=== PATIENT | female | born 1985 | race Caucasian/White ===

== ENCOUNTER 2019-04-04 18:09 | Emergency (ER) | payer SELFPAY ==
[~2019-04-04] VITALS: Ht 165.1 cm; Wt 73.5 kg
--- OUTSIDE RECORDS SUMMARY | 2019-04-04 18:11 | XMS REPORT ---
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 Test Item Value Reference Range Comments SODIUM (test code=NA) 138 mmol/L 136-145 POTASSIUM (test code=K) 3.8 mmol/L 3.5-5.1 CHLORIDE (test code=CL) 103.0 mmol/L 98-107 CARBON DIOXIDE (test code=CO2) 29.0 mmol/L 21-32 ANION GAP (test code=GAP) 9.8 10-20 GLUCOSE (test code=GLU) 95 mg/dL 74-106 BLOOD UREA NITROGEN (test code=BUN) 11 mg/dL 7-18 GLOMERULAR FILTRATION RATE (test code=GFR) > 60 mL/min >=60 Estimated GFR by using Modified MDRD formula.Chronic kidney disease is defined as either kidney damageor GFR <60 mL/min/1.73 m2 for >3 months. CREATININE (test code=CREAT) 0.60 mg/dL 0.55-1.02 Note change in reference range due to change in reagent. BUN/CREATININE RATIO (test code=BUN/CREA) 17.3 10-20 TOTAL PROTEIN (test code=PROT) 7.4 gram/dL 6.4-8.2 ALBUMIN (test code=ALB) 3.5 g/dL 3.4-5.0 GLOBULIN (test code=GLOB) 3.9 gram/dL 2.7-4.2 ALBUMIN/GLOBULIN RATIO (test code=A/G) 0.9 0.75-1.50 CALCIUM (test code=CA) 8.9 mg/dL 8.5-10.1 BILIRUBIN TOTAL (test code=BILT) 0.20 mg/dL 0.0-1.0 SGOT/AST (test code=AST) 10 IUnit/L 15-37 SGPT/ALT (test code=ALT) 18 IUnit/L 12-78 ALKALINE PHOSPHATASE TOTAL (test code=ALKP) 98 IUnit/L 45-117 Note change in reference range due to change in reagent. COMPREHENSIVE METABOLIC [id number] 20:05:00* Test Item Value Reference Range Comments SODIUM (test code=NA) 138 mmol/L 136-145 POTASSIUM (test code=K) 3.8 mmol/L 3.5-5.1 CHLORIDE (test code=CL) 103.0 mmol/L 98-107 CARBON DIOXIDE (test code=CO2) mmol/L 21-32 ANION GAP (test code=GAP) 10-20 GLUCOSE (test code=GLU) mg/dL 74-106 BLOOD UREA NITROGEN (test code=BUN) mg/dL 7-18 GLOMERULAR FILTRATION RATE (test code=GFR) mL/min >=60 CREATININE (test code=CREAT) mg/dL 0.55-1.02 BUN/CREATININE RATIO (test code=BUN/CREA) 10-20 TOTAL PROTEIN (test code=PROT) gram/dL 6.4-8.2 ALBUMIN (test code=ALB) g/dL 3.4-5.0 GLOBULIN (test code=GLOB) gram/dL 2.7-4.2 ALBUMIN/GLOBULIN RATIO (test code=A/G) 0.75-1.50 CALCIUM (test code=CA) mg/dL 8.5-10.1 BILIRUBIN TOTAL (test code=BILT) mg/dL 0.0-1.0 SGOT/AST (test code=AST) IUnit/L 15-37 SGPT/ALT (test code=ALT) IUnit/L 12-78 ALKALINE PHOSPHATASE TOTAL (test code=ALKP) IUnit/L 45-117 CBC W/AUTO [id number] 19:45:00* Test Item Value Reference Range Comments WHITE BLOOD CELL (test code=WBC) 10.3 K/mm3 4.5-12.5 RED BLOOD CELL (test code=RBC) 4.55 mill/mm3 3.7-5.2 HEMOGLOBIN (test code=HGB) 13.2 gram/dL 11.5-15.5 HEMATOCRIT (test code=HCT) 41.4 % 36.0-46.0 MEAN CELL VOLUME (test code=MCV) 91.0 fL 80-98 MEAN CELL HGB (test code=MCH) 29.0 picogram 27.0-33.0 MEAN CELL HGB CONCETRATION (test code=MCHC) 31.9 gram/dL 33.0-36.0 RED CELL DISTRIBUTION WIDTH (test code=RDW) 13.0 % 11.6-16.2 RED CELL DISTRIBUTION WIDTH SD (test code=RDW-SD) 43.1 fL 37.0-51.0 PLATELET COUNT (test code=PLT) 253 K/mm3 150-450 MEAN PLATELET VOLUME (test code=MPV) 10.9 fL 6.7-11.0 NEUTROPHIL % (test code=NT%) 64.3 % 39.0-69.0 IMMATURE GRANULOCYTE % (test code=IG%) 0.5 % 0.0-5.0 LYMPHOCYTE % (test code=LY%) 26.5 % 25.0-55.0 MONOCYTE % (test code=MO%) 7.1 % 0.0-10.0 EOSINOPHIL % (test code=EO%) 1.1 % 0.0-5.0 BASOPHIL % (test code=BA%) 0.5 % 0.0-1.0 NUCLEATED RBC % (test code=NRBC%) 0.0 % 0-0 NEUTROPHIL # (test code=NT#) 6.66 K/mm3 1.8-7.7 IMMATURE GRANULOCYTE # (test code=IG#) 0.05 x10 3/uL 0-0.03 LYMPHOCYTE # (test code=LY#) 2.74 K/mm3 1.0-5.0 MONOCYTE # (test code=MO#) 0.73 K/mm3 0-0.8 EOSINOPHIL # (test code=EO#) 0.11 K/mm3 0.0-0.5 BASOPHIL # (test code=BA#) 0.05 K/mm3 0.0-0.2 NUCLEATED RBC # (test code=NRBC#) 0.00 K/mm3 0.0-0.1 CBC W/AUTO [id number] 19:44:00* Test Item Value Reference Range Comments WHITE BLOOD CELL (test code=WBC) K/mm3 4.5-12.5 RED BLOOD CELL (test code=RBC) mill/mm3 3.7-5.2 HEMOGLOBIN (test code=HGB) 13.2 gram/dL 11.5-15.5 HEMATOCRIT (test code=HCT) 41.4 % 36.0-46.0 MEAN CELL VOLUME (test code=MCV) fL 80-98 MEAN CELL HGB (test code=MCH) picogram 27.0-33.0 MEAN CELL HGB CONCETRATION (test code=MCHC) gram/dL 33.0-36.0 RED CELL DISTRIBUTION WIDTH (test code=RDW) % 11.6-16.2 RED CELL DISTRIBUTION WIDTH SD (test code=RDW-SD) fL 37.0-51.0 PLATELET COUNT (test code=PLT) K/mm3 150-450 MEAN PLATELET VOLUME (test code=MPV) fL 6.7-11.0 NEUTROPHIL % (test code=NT%) % 39.0-69.0 IMMATURE GRANULOCYTE % (test code=IG%) % 0.0-5.0 LYMPHOCYTE % (test code=LY%) % 25.0-55.0 MONOCYTE % (test code=MO%) % 0.0-10.0 EOSINOPHIL % (test code=EO%) % 0.0-5.0 BASOPHIL % (test code=BA%) % 0.0-1.0 NEUTROPHIL # (test code=NT#) K/mm3 1.8-7.7 LYMPHOCYTE # (test code=LY#) K/mm3 1.0-5.0 MONOCYTE # (test code=MO#) K/mm3 0-0.8 EOSINOPHIL # (test code=EO#) K/mm3 0.0-0.5 BASOPHIL # (test code=BA#) K/mm3 0.0-0.2 - MRI LOW EXT W WO CONT [id number] 13:07:00 FAX: Diana Beyer [facility] [phone] [place]: B St: REG Name: ROBERTO STARK [facility] : [birth year] Age[facility]S: 33[facility]F [address] [facility] Unit #: [id number] Loc: [place] [address] Phys: Diana Dominguez DPM Acct: [id number] Dis Date: Status: REG CLI PHONE #: [phone] Exam Date: 04/16/2018950 FAX #: [phone] Reason: S91.302D EXAMS: CPT CODE: [id number] [place] [address] HISTORY: Multiple fractures of the left foot TECHNIQUE: Sagittal T1, sagittal STIR, axial T1, axial T2 fat-sat, coronal T2, and coronal STIR sequences of the left foot were a cquired without contrast. COMPARISON: CT of the left foot [facility]2018 and radiographs of the left foot March 31, 2018 FINDINGS: There is marrow edema at the base of the great toe proximal metatarsal. There is also marrow edema at the head of the metatar coleman. There are patchy areas of marrow edema throughout the third and fourt h metatarsals. There is also edema at the base and in the head of the fifth metatarsal. Multiple hyperintense foci are also seen in the talus, calcaneus, navicular, cuboid, and all 3 cuneiform bones. On postcontrast imaging there is enhancement in the head of the first metata rsal and the base of the great toe proximal phalanx. Foci of enhancement a re seen in the talus, calcaneus, the tibial plafond, the cuboid, and all 3 cuneiform bones. There is also diffuse marrow enhancement of the third, f ourth, and fifth metatarsals. There is diffuse swelling of the sof t tissues around the foot but no discrete fluid collection is seen. IMPRESSION: Findings consistent with osteomyelitis i nvolving metatarsals 3 through 5 as well as head of the first metatarsal and the proximal phalanx of the great toe. There is osteomyelitis throu ghout the tarsal bones and in the tibial plafond as well. The patient's known fractures of the proximal phalanx of the great toe and in the fourth metatarsal neck are not well visualized on this exam. at 1307 Reported and signed by: Mike Moore MD PAGE 1 Signed Report (CONTINUED) FAX: Diana Quezada DPM [phone] [place]: B St: REG Name: ROBERTO AMAYA [facility] : 1985 Age/S: 33/F [address] Unit #: [id number] [facility] [place] [address] Phys: Diana Dominguez DPM Acct: [id number] Dis Date: Status: REG CLI PHONE #: [phone] Exam Date: 04/16/2018 0951 FAX #: [phone] Reason: S91.302D EXAMS: CPT CODE: [id number] [place] [address] <Continued> CC: Diana Dominguez DPM Technologist: Jeanette Palomares)(MR) Trnscrd Date/Time/By: 04/16/2018 (1307) : By: [email or web address] Orig Print D/T: S: 04/16/2018 (3638) PAGE 2 Signed Report - XR FOOT 3 + V [id number] 15:32:00 FAX: Diana Beyer DPM [phone] [place]: O St: REG Name: ROBERTO STARK [facility] : [birth year] Age/S: 32/F [address] Unit #: [id number] Loc: [facility] [place] [address] Phys: Diana Dominguez DPM Acct: [id number] Dis Date: Status: REG RCR PHONE #: [phone] Exam Date: 03/31/2018 1427 FAX #: [phone] Reason: S91.302D EXAMS: CPT CODE: [id number] XR FOOT 3 + [place] [address] REASON FOR EXAM: S91.302D EXAM ORDER DATE: 03/31/2018 1:27 PM Ordering MLinda: Diana Dominguez DPM PROCEDURE: - XR FOOT 3 + V LT FINDINGS: 3 views of the left foot were obtained. Moderate focal s oft tissue swelling in the dorsal aspect of the fourth/fifth MTPs. The osseous structures are mildly osteopenic in this area. There is probable chronic partially nonunion fracture involving the head of the fourth pro ximal phalanx. A probable lytic lesion noted within the fifth DIP suggesti ve of possible osteomyelitis. Recommend further correlation with CT IMPRESSION: Focal soft tissue swelling at the left fourth/fifth MTP. Nonunion chronic fracture of the head of the fourth proximal phalanx. Probable focal destructive/osteolytic lesion versus artifact at the fifth DIP. Recommend further correlation with CT Electronically Sig ene by Crow Metcalf on 03/31/2018 at 1532 Reported and s igned by: Ruben Metcalf M.D. CC: Diana Dominguez DPM Technologist: RT Reuben(Thien) Trnscrd Date/Time/By: 03/31/2018 (0288) : By: GabiL Orig Print D/T: S: 03/31/2018 (6673) PAGE 1 Signed Report COMPREHENSIVE METABOLIC PANEL 2018-03-31 14:32:00* Test Item Value Reference Range Comments SODIUM (test code=NA) 140 mmol/L 136-145 POTASSIUM (test code=K) 4.2 mmol/L 3.5-5.1 CHLORIDE (test code=CL) 104.0 mmol/L 98-107 CARBON DIOXIDE (test code=CO2) 29.0 mmol/L 21-32 ANION GAP (test code=GAP) 11.2 10-20 GLUCOSE (test code=GLU) 86 mg/dL 74-106 BLOOD UREA NITROGEN (test code=BUN) 9 mg/dL 7-18 GLOMERULAR FILTRATION RATE (test code=GFR) > 60 mL/min >=60 Estimated GFR by using Modified MDRD formula.Chronic kidney disease is defined as either kidney damageor GFR <60 mL/min/1.73 m2 for >3 months. CREATININE (test code=CREAT) 0.70 mg/dL 0.55-1.02 Note change in reference range due to change in reagent. BUN/CREATININE RATIO (test code=BUN/CREA) 13.3 10-20 TOTAL PROTEIN (test code=PROT) 6.9 gram/dL 6.4-8.2 ALBUMIN (test code=ALB) 3.8 g/dL 3.4-5.0 GLOBULIN (test code=GLOB) 3.1 gram/dL 2.7-4.2 ALBUMIN/GLOBULIN RATIO (test code=A/G) 1.2 0.75-1.50 CALCIUM (test code=CA) 8.9 mg/dL 8.5-10.1 BILIRUBIN TOTAL (test code=BILT) 0.20 mg/dL 0.0-1.0 SGOT/AST (test code=AST) 15 IUnit/L 15-37 SGPT/ALT (test code=ALT) 21 IUnit/L 12-78 ALKALINE PHOSPHATASE TOTAL (test code=ALKP) 96 IUnit/L 45-117 Note change in reference range due to change in reagent. HCG SERUM [id number] 14:32:00* Test Item Value Reference Range Comments HCG SERUM QUAL (test code=HCGQL) NEGATIVE NEGATIVE This HCGQL test is NOT applicable for MALE patients.Check with nurse about probable order error.If Tumor Marker Test needed, nurse should order test "HCGTU"(Test #550.28513) [id number] 14:23:00* Test Item Value Reference Range Comments GLYCOSYLATED HEMOGLOBIN (HA1C) (test code=GLYHGB) 5.2 % HbA1 4.8-6.0 ESTIMATED AVERAGE GLUCOSE (test code=EAG) 103 MG/DL COMPREHENSIVE METABOLIC [id number] 14:23:00* Test Item Value Reference Range Comments SODIUM (test code=NA) 140 mmol/L 136-145 POTASSIUM (test code=K) 4.2 mmol/L 3.5-5.1 CHLORIDE (test code=CL) 104.0 mmol/L 98-107 CARBON DIOXIDE (test code=CO2) mmol/L 21-32 ANION GAP (test code=GAP) 10-20 GLUCOSE (test code=GLU) mg/dL 74-106 BLOOD UREA NITROGEN (test code=BUN) mg/dL 7-18 GLOMERULAR FILTRATION RATE (test code=GFR) mL/min >=60 CREATININE (test code=CREAT) mg/dL 0.55-1.02 BUN/CREATININE RATIO (test code=BUN/CREA) 10-20 TOTAL PROTEIN (test code=PROT) gram/dL 6.4-8.2 ALBUMIN (test code=ALB) g/dL 3.4-5.0 GLOBULIN (test code=GLOB) gram/dL 2.7-4.2 ALBUMIN/GLOBULIN RATIO (test code=A/G) 0.75-1.50 CALCIUM (test code=CA) mg/dL 8.5-10.1 BILIRUBIN TOTAL (test code=BILT) mg/dL 0.0-1.0 SGOT/AST (test code=AST) IUnit/L 15-37 SGPT/ALT (test code=ALT) IUnit/L 12-78 ALKALINE PHOSPHATASE TOTAL (test code=ALKP) IUnit/L 45-117 HCG SERUM [id number] 14:23:00* Test Item Value Reference Range Comments HCG SERUM QUAL (test code=HCGQL) NEGATIVE NEGATIVE This HCGQL test is NOT applicable for MALE patients.Check with nurse about probable order error.If Tumor Marker Test needed, nurse should order test "HCGTU"(Test #550.02045) CBC W/AUTO [id number] 14:22:00* Test Item Value Reference Range Comments WHITE BLOOD CELL (test code=WBC) 9.2 K/mm3 4.5-12.5 RED BLOOD CELL (test code=RBC) 4.53 mill/mm3 3.7-5.2 HEMOGLOBIN (test code=HGB) 13.0 gram/dL 11.5-15.5 HEMATOCRIT (test code=HCT) 42.2 % 36.0-46.0 MEAN CELL VOLUME (test code=MCV) 93.2 fL 80-98 MEAN CELL HGB (test code=MCH) 28.7 picogram 27.0-33.0 MEAN CELL HGB CONCETRATION (test code=MCHC) 30.8 gram/dL 33.0-36.0 RED CELL DISTRIBUTION WIDTH (test code=RDW) 13.2 % 11.6-16.2 RED CELL DISTRIBUTION WIDTH SD (test code=RDW-SD) 45.1 fL 37.0-51.0 PLATELET COUNT (test code=PLT) 265 K/mm3 150-450 MEAN PLATELET VOLUME (test code=MPV) 11.1 fL 6.7-11.0 NEUTROPHIL % (test code=NT%) 62.9 % 39.0-69.0 IMMATURE GRANULOCYTE % (test code=IG%) 0.5 % 0.0-5.0 LYMPHOCYTE % (test code=LY%) 25.8 % 25.0-55.0 MONOCYTE % (test code=MO%) 8.4 % 0.0-10.0 EOSINOPHIL % (test code=EO%) 1.7 % 0.0-5.0 BASOPHIL % (test code=BA%) 0.7 % 0.0-1.0 NUCLEATED RBC % (test code=NRBC%) 0.0 % 0-0 NEUTROPHIL # (test code=NT#) 5.75 K/mm3 1.8-7.7 IMMATURE GRANULOCYTE # (test code=IG#) 0.05 x10 3/uL 0-0.03 LYMPHOCYTE # (test code=LY#) 2.36 K/mm3 1.0-5.0 MONOCYTE # (test code=MO#) 0.77 K/mm3 0-0.8 EOSINOPHIL # (test code=EO#) 0.16 K/mm3 0.0-0.5 BASOPHIL # (test code=BA#) 0.06 K/mm3 0.0-0.2 NUCLEATED RBC # (test code=NRBC#) 0.00 K/mm3 0.0-0.1 MANUAL DIFF REQUIRED (test code=MDIFF) NO CBC W/AUTO [id number] 14:17:00* Test Item Value Reference Range Comments WHITE BLOOD CELL (test code=WBC) K/mm3 4.5-12.5 RED BLOOD CELL (test code=RBC) mill/mm3 3.7-5.2 HEMOGLOBIN (test code=HGB) 13.0 gram/dL 11.5-15.5 HEMATOCRIT (test code=HCT) 42.2 % 36.0-46.0 MEAN CELL VOLUME (test code=MCV) fL 80-98 MEAN CELL HGB (test code=MCH) picogram 27.0-33.0 MEAN CELL HGB CONCETRATION (test code=MCHC) gram/dL 33.0-36.0 RED CELL DISTRIBUTION WIDTH (test code=RDW) % 11.6-16.2 RED CELL DISTRIBUTION WIDTH SD (test code=RDW-SD) fL 37.0-51.0 PLATELET COUNT (test code=PLT) K/mm3 150-450 MEAN PLATELET VOLUME (test code=MPV) fL 6.7-11.0 NEUTROPHIL % (test code=NT%) % 39.0-69.0 IMMATURE GRANULOCYTE % (test code=IG%) % 0.0-5.0 LYMPHOCYTE % (test code=LY%) % 25.0-55.0 MONOCYTE % (test code=MO%) % 0.0-10.0 EOSINOPHIL % (test code=EO%) % 0.0-5.0 BASOPHIL % (test code=BA%) % 0.0-1.0 NEUTROPHIL # (test code=NT#) K/mm3 1.8-7.7 LYMPHOCYTE # (test code=LY#) K/mm3 1.0-5.0 MONOCYTE # (test code=MO#) K/mm3 0-0.8 EOSINOPHIL # (test code=EO#) K/mm3 0.0-0.5 BASOPHIL # (test code=BA#) K/mm3 0.0-0.2 COMPREHENSIVE METABOLIC [id number] 14:16:00* Test Item Value Reference Range Comments SODIUM (test code=NA) mmol/L 136-145 POTASSIUM (test code=K) mmol/L 3.5-5.1 CHLORIDE (test code=CL) mmol/L 98-107 CARBON DIOXIDE (test code=CO2) mmol/L 21-32 ANION GAP (test code=GAP) 10-20 GLUCOSE (test code=GLU) mg/dL 74-106 BLOOD UREA NITROGEN (test code=BUN) mg/dL 7-18 GLOMERULAR FILTRATION RATE (test code=GFR) mL/min >=60 CREATININE (test code=CREAT) mg/dL 0.55-1.02 BUN/CREATININE RATIO (test code=BUN/CREA) 10-20 TOTAL PROTEIN (test code=PROT) gram/dL 6.4-8.2 ALBUMIN (test code=ALB) g/dL 3.4-5.0 GLOBULIN (test code=GLOB) gram/dL 2.7-4.2 ALBUMIN/GLOBULIN RATIO (test code=A/G) 0.75-1.50 CALCIUM (test code=CA) mg/dL 8.5-10.1 BILIRUBIN TOTAL (test code=BILT) mg/dL 0.0-1.0 SGOT/AST (test code=AST) IUnit/L 15-37 SGPT/ALT (test code=ALT) IUnit/L 12-78 ALKALINE PHOSPHATASE TOTAL (test code=ALKP) IUnit/L 45-117 HCG SERUM [id number] 14:16:00* Test Item Value Reference Range Comments HCG SERUM QUAL (test code=HCGQL) NEGATIVE NEGATIVE This HCGQL test is NOT applicable for MALE patients.Check with nurse about probable order error.If Tumor Marker Test needed, nurse should order test "HCGTU"(Test #550.00253) - XR CHEST 1 [id number] 12:41:00 FAX: Bj Sharma Jr [phone] [place]: B St: RACHELLE Name: ROBERTO STARK [facility] : [birth year] Age/S: 18/F [address] Unit #: [id number] Loc: [place] [address] Phys: Bj Rose Jr, MD Acct: [id number] Dis Date: Status: UNK PHONE #: [phone] Exam Date: 01/06/20042134 FAX #: [phone] Reason: OR DAY: 1 EXAMS: CPT CODE: [id number] XR CHEST 1 V 67525 DICTATED: 01/07/04, 1241 C LINICAL HISTORY: QUESTIONABLE OVERDOSE. CHEST, 01/06/04: COMPARISON: December 14, 2003. FINDINGS: Portable AP upright projection of the chest again demonstrates prominence of the superior me diastinum. Cardiac silhouette is within normal limits. Pulmonary vascula ture is unremarkable. No infiltrate or pleural effusion is identified. IMPRESSION: STABLE APPEARANCE OF THE CHEST WITH PERSISTENT PROMINENCE OF THE SUPERIOR MEDIASTINUM. IF CLINICALLY INDICA JUVENTINO, THIS CAN BE FURTHER CHARACTERIZED WITH CT SCAN OF THE CHEST WITH IV CONTRAST. #[id number] at 2232 Reported and signed by: Jose M elliott MD CC: Bj Rose Jr. Technologist: TODD CONNELL; Maria Elena Salamanca Trns crd Date/Time/By: 01/07/2004 (1301) : By: Fred/TedTTR Orig Print D/T: (0940) S: 01/08/2004 (0401) PAGE 1 Signed Report - CT CHEST W/[id number] 21:06:00 Name: ROBERTO AMAYA [facility] : 1985 Age/S: 18 / F [address] Unit #: [id number] Loc: [place] [address] Phys: Mahnaz Nichole MD Acct: [id number] Di s Date: Status: UNK PHONE #: [phone] Exam Date: 12/15/2003 191 FAX #: [phone] Reason: UN AND CREATININE LAST 48 HRS ? N EXAMS: CPT CODE: [id number] CT CHEST W/CO NTRAST 73423 DICTATED: 12/15/03, 2105 REASON FOR EXAMINATION: CALLED BACK. CT OF THE CHEST, 11/17 10/20: CPT 54575 IMPRESSION: NORMAL CHEST. THE PSEUDO-MASS SEEN ON CT REPRESENTS VASCULAR STRUCTURES. FI NDINGS: The lungs are clear. The heart size is within normal limits. No evidence of consolidation, effusion or mass. The thoracic aorta is unrem arkable. An azygos fissure is noted. The prominence in the left paratrac heal space represents pulmonary vasculature on CAT scan. There is a persis tent left SVC noted which contributes to the left paratracheal shadow seen on CXR. A small residual thymus tissue is seen in the anterior mediastinu m. #9534 Electronically Signed by Crow Metcalf on 11/18 at 1032 Reported and signed by: Ruben Metcalf M.D. CC: Tech nologist:CHINO BUSH, RT(R) CT CTDI: DLP: Trnscb Date/Ti me: 12/15/2003 (4399) v.EDX.GRUBER/t.SDR.VTL/v.EDX.GRUBER Orig Print D/T: S: 2003 (1032) CTDI: DLP: PAGE 1 Sig ene Report - XR CHEST 2 [id number] 04:11:00 FAX: Michael Baptiste [phone] [place]: St: RACHELLE Name: ROBERTO STARK [facility] : [birth year] Age[facility]S: 18[facility] [address] [facility]: [id number] Loc: [place], [place] [address] Phys: Vu,Loc Lionel Acct: [id number] Dis Date: Status: UNK PHONE #: [phone] Exam Date: 12/14/2003 2152 FAX #: [phone] Reason: OR DAY: 1 EXAMS: CPT CODE: [id number] XR CHEST 2 V 08571 DICTATED: 12/15/03, 0411 H ISTORY: HIT HEAD. CHEST PA AND LATERAL VIEWS, 12/14/03: 1. Heart is normal in size. Mindy bilaterally are normal. 2. Evidence of a rounded density in the superior mediastinum at the level of the top of the aortic arch, measuring 3.5 cm width, 4.5 cm height, 3.5 cm AP, suspicious of mediastinal mass versus ad enopathy therefore CT scan of the chest is recommended with IV cont rast enhancement for more definitive characterization. In cidentally, there is an azygous lobe in the right upper lobe medial ly representing a normal variant. No pneumonic infiltrates or consolidation and there is no pleural effusion. CONCLUSION: HEART IS NORMAL IN SIZE. NO ACTIVE PULMONARY DISEAS E. SUSPICIOUS SUPERIOR MEDIASTINAL MASS VERSUS ADENOPATHY, WHICH SHOULD BE FURTHER INVESTIGATED BY CT SCAN OF THE CHEST WITH IV CONTRAST ENHANC EMENT FOR MORE DEFINITIVE CHARACTERIZATION. #[id number] at 0752 Reported and signed by: Kurt Marroquin M.D. CC: Tony Nascimento MD Technologist: Jose Braxton Date/Time/By: 12/15/2003 (0713) : By: Burak[facility] Print D/T: S: 12/15/2003 (0752) PAGE 1 Signed Report - CT HEAD/BRAIN W/O [id number] 03:43:00 Name: ROBERTO AMAYA [facility] : 1985 Age/S: 18 / F [address] Unit #: [id number] Loc: [place] [address] Phys: Vu,Loc Lionel Acct: [id number] Dis Date: Status: UNK PHONE #: [phone] Exam Date: 12/14/2003 231 FAX #: [phone] Reason: UN AND CREATININE LAST 48 HRS ? N EXAMS: CPT CODE: [id number] CT HEAD/BRAIN W/O CONT [id number] DICTATED: 12/15/03, 0343 CLINICAL HISTORY: HIT HEAD. CT SCAN OF THE BRAIN WITHOUT IV CONTRAST ENHANCEMENT, 12/14/03: 1. No evidence of intracranial hemorrhage. 2. No evidence of acute infarction involving the cerebral hemispheres bilaterally, basal ganglia bilaterally, brain stem and cerebellum. 3. The ventricles are normal in caliber without any displacement, deformity, mass effect. 4. The cerebral sulci are normal in caliber. 5. The paranasal sinuses and mastoids are normal. 6. No evidence of subdural or epidural hematoma and there is no fracture demonstrated. CONCLUSION: NO ACUTE INTRACRANIAL PATHOLOGY DEMONSTRATED. NO EVIDENCE OF SUBDURAL OR EPIDURAL HEMATOMA AND THERE IS NO FRACTURE INVOLVING THE CALVARIUM NOR THE BASE OF THE CRANIUM. #[id number] at 0752 Reported and signed by: Kurt Marroquin M.D. CC: Michael Nascimento MD Technologist:KAY MARK CT CTDI: DLP: Trnscb Date/Time: 12/15/2003 (0653) [facility] D/T: S: 12/15/2003 (0752) CTDI: DLP: PAGE 1 Signed Report
[2019-04-04 20:49] LABS: BASOPHILS # (AUTO) 0.1 (0.0-0.1); BASOPHILS % 0.5 % (0.0-1.0); EOSINOPHILS # (AUTO) 0.1 (0.0-0.4); HEMATOCRIT 39.7 % (34.2-44.1); HEMOGLOBIN 13.1 g/dL (12.0-16.0); LYMPHOCYTES % 28.8 % (18.0-39.1); MEAN CORPUSCULAR HEMOGLOBIN 29.3 pg (28-32); MEAN CORPUSCULAR VOLUME 88.8 fL (81-99); MONOCYTES # (AUTO) 0.7 (0.2-0.8); MONOCYTES % 6.9 % (4.4-11.3); NEUTROPHILS # (AUTO) 6.6 (2.1-6.9); NEUTROPHILS % 62.5 % (38.7-80.0); PLATELET COUNT 317 x10e3/uL (140-360); RED BLOOD COUNT 4.47 x10e6/uL (3.6-5.1); RED CELL DISTRIBUTION WIDTH 12.1 % (11.7-14.4)
[2019-04-04 21:00] LABS: ALANINE AMINOTRANSFERASE 29 IU/L (0-55); ALBUMIN 4.2 g/dL (3.5-5.0); ALBUMIN/GLOBULIN RATIO 1.4 (0.8-2.0); ALKALINE PHOSPHATASE 88 IU/L (40-150); ANION GAP 13.9 mmol/L (8-16); BLOOD UREA NITROGEN 13 mg/dL (7-26); BUN/CREATININE RATIO 18 (6-25); CALCIUM 9.9 mg/dL (8.4-10.2); CARBON DIOXIDE 27 mmol/L (22-29); CHLORIDE 104 mmol/L (98-107); CREATINE KINASE 98 IU/L (29-168); CREATININE, SERUM 0.74 mg/dL (0.57-1.11); EST GLOMERULAR FILTRATION RATE > 60 ML/MIN (60-); GLUCOSE 94 mg/dL (74-118); POTASSIUM 3.9 mmol/L (3.5-5.1); SODIUM 141 mmol/L (136-145)
[2019-04-04] MEDS ORDERED: KETOROLAC TROMETHAMINE 60 MG/2 ML VIAL IM ONE (21:15)
[2019-04-04 22:01] LABS: AMPHETAMINES SCREEN,URINE NEGATIVE (NEGATIVE); BENZODIAZEPINES SCREEN,URINE NEGATIVE (NEGATIVE); PHENCYCLIDINE SCREEN,URINE NEGATIVE (NEGATIVE)
[2019-04-04] MEDS ORDERED: LIDOCAINE 4% PATCH TP ONE (23:56)
== END 2019-04-04 23:00 | disposition home or self-care (01) ==
LOC: ER 18:09
DX: R07.89 Other chest pain (principal); R01.1 Cardiac murmur, unspecified; K51.90 Ulcerative colitis, unspecified, without complications
CPT/HCPCS: 36415; 80053; 80307; 82550; 82553; 84484; 85025; 93005; 99283